=== PATIENT | female | born 1945 | race Caucasian/White ===

== ENCOUNTER 2019-12-31 18:08 | Inpatient (IN) | payer OTHER, MEDICARE ==
[~2019-12-31] VITALS: Ht 160 cm; Wt 72.6 kg
[2019-12-31 18:20] VITALS: BP_SYST 107
[2019-12-31] MEDS ORDERED: LORazepam 2 MG/ML VIAL IVP ONE (18:30)
[2019-12-31] MEDS ORDERED: ONDANSETRON HCL 4 MG/2 ML VIAL IVP ONE (18:30)
[2019-12-31] MEDS ORDERED: IPRATROPIUM/ALBUTEROL SULFATE 3 ML AMPUL.NEB (DUONEB) INH ONE ×2 (18:45→20:30)
[2019-12-31] MEDS ORDERED: IPRATROPIUM/ALBUTEROL SULFATE 3 ML AMPUL.NEB (DUONEB) ONE (18:48)
[2019-12-31 18:59] LABS: BASOPHILS # (AUTO) 0.1 K/uL (0.0-0.2); EOSINOPHILS # (AUTO) 0.1 K/uL (0.0-0.4); EOSINOPHILS % (AUTO) 0.6 % (0.0-4.0); HEMATOCRIT 44.3 % (36-48); HEMOGLOBIN 14.5 g/dL (12.0-16.0); LYMPHOCYTES # (AUTO) 4.1 K/uL (1.0-5.5); LYMPHOCYTES % (AUTO) 30.3 % (20.5-51.5); MEAN CORPUSCULAR HEMOGLOBIN 32 pg (27-31); MEAN CORPUSCULAR HGB CONC 33 % (32-36); MEAN CORPUSCULAR VOLUME 99 fL (79.0-98.0); MONOCYTES # (AUTO) 1.2 K/uL (0.0-1.0); MONOCYTES % (AUTO) 9.1 % (1.7-9.3); PLATELET COUNT (AUTO) 440 K/uL (130-430); RED BLOOD CELL COUNT(AUTO) 4.48 MIL/uL (4.2-6.2); RED CELL DISTRIBUTION WIDTH 15.5 % (9.0-15.0); WHITE BLOOD COUNT (AUTO) 13.5 K/uL (4.8-10.8)
[2019-12-31 19:14] LABS: ANION GAP 14 (5-15); CHLORIDE 102 mmol/L (98-107); CREATININE 1.04 mg/dL (0.55-1.30); GLUCOSE 190 mg/dL (70-99); SODIUM SERUM 135 mmol/L (136-145); UREA NITROGEN, BLOOD 18 mg/dL (8-21)
[2019-12-31] MEDS ORDERED: PROPOFOL DRIP 100 ML IV ONE (19:15)
[2019-12-31] MEDS ORDERED: ETOMIDATE 20 MG/ 10 ML VIAL (AMIDATE) IVP ONE (19:15)
[2019-12-31] MEDS ORDERED: KETAMINE 30 MG/3 ML SYRINGE 30 MG in NS 100 ML IV ONE ×4 (19:15)
[2019-12-31] MEDS ORDERED: NACL 0.9% 1,000 ML IV ONE ×3 (19:15→19:30)
[2019-12-31] MEDS ORDERED: SUCCINYLCHOLINE CHLORIDE 20 MG/ML(QUELICIN) IVP ONE (19:15)
[2019-12-31 19:17] LABS: INR 1.1 (0.8-1.2); PROTHROMBIN TIME 11.2 SECS (9.5-12.5)
[2019-12-31 19:23] LABS: BILIRUBIN,URINE 1+ (NEGATIVE); CLARITY/URINE TURBID (CLEAR); COLOR,URINE YELLOW (YELLOW); GLUCOSE,URINE NEGATIVE (NEGATIVE); KETONES,URINE NEGATIVE (NEGATIVE); LEUKOCYTE ESTERASE ,URINE TRACE (NEGATIVE); NITRITE, URINE POSITIVE (NEGATIVE); PROTEIN URINE TRACE (NEGATIVE); UROBILINOGEN,URINE 0.2 (0.2-1.0)
[2019-12-31 19:26] LABS: ALANINE AMINOTRANSFERASE 22 U/L (12-78); ALBUMIN 2.8 g/dL (3.4-4.8); ASPARTATE AMINOTRANSFERASE 28 U/L (10-37); TOTAL BILIRUBIN 0.6 mg/dL (0.0-1.0)
[2019-12-31] MEDS ORDERED: VANCOMYCIN HCL 1,000 MG in NS 250 ML IV ONE (19:30)
[2019-12-31] MEDS ORDERED: PIPERACILLIN/TAZO 3.375 GM in NS 50 ML IV ONE (19:30)
[2019-12-31] MEDS ORDERED: NOREPINEPHRINE BITARTRATE 4 MG in NS 246 ML IV ONE (19:30)
[2019-12-31] MEDS ORDERED: KETAMINE 30 MG/3 ML SYRINGE ONE ×2 (19:31)
[2019-12-31 19:39] LABS: BLOOD, URINE TRACE (NEGATIVE)
[2019-12-31] MEDS ORDERED: PIPERACILLIN/TAZOBACTAM 3.375 GM/VIAL (ZOSYN) IV ONE (19:39)
[2019-12-31] MEDS ORDERED: VANCOMYCIN HCL 1000 MG/VIAL IV ONE (19:39)
[2019-12-31] MEDS ORDERED: NOREPINEPHRINE 4 MG/4 ML VIAL IV ONE (19:39)
[2019-12-31 19:44] LABS: BACTERIA,URINE MANY /HPF (None Seen)
[2019-12-31 19:47] LABS: CALCIUM OXALATE CRYSTALS,UR 50-70 /HPF (None Seen)
[2019-12-31] MEDS ORDERED: fentaNYL CITRATE/PF 100 MCG/2 ML AMP IVP ONE (20:00)
[2019-12-31] MEDS ORDERED: ALBUTEROL SULFATE 0.083% 2.5 MG/3 ML VIAL.NEB INH ONE ×2 (20:30→21:00)
[2019-12-31] MEDS ORDERED: methylPREDNISolone SOD SUCC/PF 62.5 MG/ML VIAL IVP ONE (21:00)
[2019-12-31] MEDS ORDERED: IOHEXOL 350 mgI/mL, 150 ML INFUS..BTL IV ONE (21:07)
[2019-12-31] MEDS ORDERED: HEPARIN 25,000 UNITS/D5W 250ML 250 ML IV ONE (21:45)
[2019-12-31] MEDS ORDERED: HEPARIN SODIUM,PORCINE 5000 UNITS/ML VIAL IVP ONE (22:30)
[2019-12-31] MEDS ORDERED: DOCUSATE SODIUM 100 MG CAPSULE PO PRN (22:45)
[2019-12-31] MEDS ORDERED: POTASSIUM CHLORIDE 20 MEQ TAB.PRT.SR PO PRN (22:45)
[2019-12-31] MEDS ORDERED: MAGNESIUM SULFATE 50 ML IV PRN (22:45)
[2019-12-31] MEDS ORDERED: MORPHINE 2 MG/ML INJ. SYRINGE IVP PRN ×2 (22:45)
[2019-12-31] MEDS ORDERED: ONDANSETRON HCL 4 MG/2 ML VIAL IVP PRN (22:45)
[2019-12-31] MEDS ORDERED: MUPIROCIN 2% TOPICAL OINTMENT 22 GM NS PRN (22:45)
[2019-12-31] MEDS ORDERED: LORazepam 2 MG/ML VIAL IVP PRN (22:45)
[2019-12-31] MEDS ORDERED: ACETAMINOPHEN 325 MG TABLET PO PRN (22:45)
[2019-12-31] MEDS ORDERED: HEPARIN 25,000 UNITS/D5W 250ML 250 ML IV PRN (23:00)
[2019-12-31] MEDS ORDERED: HEPARIN SODIUM,PORCINE 3000 UNITS/0.6 ML BOLUS IVP PRN (23:15)
[2019-12-31] MEDS ORDERED: HEPARIN SODIUM,PORCINE 2000 UNITS/0.4 ML BOLUS IVP PRN (23:15)
[2019-12-31 23:32] VITALS: BP_SYST 131
[2020-01-01] VITALS (15 sets, daily range): BP systolic 92–144
[2020-01-01] MEDS: D5NS 1,000 ML IV SCH ×2 (01:30→08:45)
[2020-01-01] MEDS ORDERED: PIPERACILLIN/TAZOBACTAM 3.375 GM/VIAL (ZOSYN) IV ONE (02:18)
[2020-01-01] MEDS: PIPERACILLIN/TAZO 3.375 GM in NS 50 ML IV SCH ×2 (02:20→08:00)
[2020-01-01 05:57] LABS: BASOPHILS # (AUTO) 0.1 K/uL (0.0-0.2); BASOPHILS % (AUTO) 0.4 % (0.0-2.0); EOSINOPHILS # (AUTO) 0.1 K/uL (0.0-0.4); EOSINOPHILS % (AUTO) 0.4 % (0.0-4.0); HEMATOCRIT 41.8 % (36-48); HEMOGLOBIN 13.6 g/dL (12.0-16.0); LYMPHOCYTES # (AUTO) 1.6 K/uL (1.0-5.5); LYMPHOCYTES % (AUTO) 7.6 % (20.5-51.5); MEAN CORPUSCULAR HEMOGLOBIN 33 pg (27-31); MEAN CORPUSCULAR HGB CONC 33 % (32-36); MEAN CORPUSCULAR VOLUME 100 fL (79.0-98.0); MONOCYTES # (AUTO) 0.6 K/uL (0.0-1.0); MONOCYTES % (AUTO) 2.9 % (1.7-9.3); NEUTROPHILS # (AUTO) 18.7 K/uL (1.8-7.7); PLATELET COUNT (AUTO) 418 K/uL (130-430); RED BLOOD CELL COUNT(AUTO) 4.17 MIL/uL (4.2-6.2); RED CELL DISTRIBUTION WIDTH 15.8 % (9.0-15.0)
[2020-01-01 06:00] LABS: ANION GAP 11 (5-15); CALCIUM 7.8 mg/dL (8.4-11.0); CHLORIDE 105 mmol/L (98-107); CREATININE 1.04 mg/dL (0.55-1.30); GLUCOSE 334 mg/dL (70-99); POTASSIUM 4.3 mmol/L (3.5-5.1); SODIUM SERUM 136 mmol/L (136-145); UREA NITROGEN, BLOOD 16 mg/dL (8-21)
[2020-01-01] MEDS ORDERED: D5W 250 ML IV.SOLN IV ONE (08:49)
[2020-01-01] MEDS ORDERED: ETOMIDATE 20 MG/ 10 ML VIAL (AMIDATE) IVP ONE (09:18)
[2020-01-01] MEDS ORDERED: SUCCINYLCHOLINE CHLORIDE 20 MG/ML(QUELICIN) IVP ONE (09:18)
[2020-01-01 10:52] LABS: NEUTROPHILS % (AUTO) 88.7 % (40.0-70.0)
== END 2020-01-01 08:50 | disposition expired | DRG 871 ==
LOC: SED 18:08 → SIC 22:21
PROVIDERS: ADMIT General Practice; ATTEND General Practice
PROC: 0BH17EZ Insertion of Endotracheal Airway into Trachea, Via Natural or Artificial Opening (ICD-10-PCS; principal; 2019-12-31)
PROC: 5A1935Z Respiratory Ventilation, Less than 24 Consecutive Hours (ICD-10-PCS; 2019-12-31)
PROC: 02HV33Z Insertion of Infusion Device into Superior Vena Cava, Percutaneous Approach (ICD-10-PCS; 2019-12-31)
PROC: B548ZZA Ultrasonography of Superior Vena Cava, Guidance (ICD-10-PCS; 2019-12-31)
DX: A41.9 Sepsis, unspecified organism (principal); J96.01 Acute respiratory failure with hypoxia; I26.92 Saddle embolus of pulmonary artery without acute cor pulmonale; E87.2 Acidosis; C18.9 Malignant neoplasm of colon, unspecified; C78.00 Secondary malignant neoplasm of unspecified lung; C79.31 Secondary malignant neoplasm of brain; C78.7 Secondary malignant neoplasm of liver and intrahepatic bile duct; R57.9 Shock, unspecified; E34.0 Carcinoid syndrome; Z66 Do not resuscitate; I46.9 Cardiac arrest, cause unspecified; I10 Essential (primary) hypertension
CPT/HCPCS: 36415; 36600; 71045; 71275; 80048; 80053; 81000-TC; 82803-TC; 83036; 83605; 83735-TC; 83880; 84484; 85025; 85610-TC; 85730-TC; 86710; 87040-TC; 87081; 87086; 87186-TC; 93005; 94002; 94640; 96365; 96375; 99291; C1751; J0330; J1644; J2060; J2270; J2405; J2543; J2704; J2930; J3010; J3370; J3490; J7042; J7060; J7613; Q9967